=== PATIENT | male | born 1990 | race African-American/Black ===

== ENCOUNTER 2019-06-16 00:41 | Emergency (ER) | payer OTHER ==
[~2019-06-16] VITALS: Ht 160 cm; Wt 54.4 kg
[~2019-06-16 00:41] MED LIST: HYDROCODONE-AP1 EAC6 PO; IBUPROFEN 800800 M1 PO; NOHOMEMEDICATIONS; ZPAK PO
[2019-06-16 01:44] VITALS: BP 128/70
== END 2019-06-16 01:44 | disposition home or self-care (01) ==
LOC: M.ERS 00:41
DX: S01.81XA Laceration without foreign body of other part of head, initial encounter (principal); W22.03XA Walked into furniture, initial encounter; Y93.89 Activity, other specified; Y92.89 Other specified places as the place of occurrence of the external cause; Y99.8 Other external cause status